=== PATIENT | female | born 1950 | race Caucasian/White ===

== ENCOUNTER 2017-08-12 15:39 | Emergency (ER) | payer OTHER ==
[~2017-08-12] VITALS: Ht 165.1 cm; Wt 79.4 kg
--- NOTE | 2017-08-12 16:08 | ED ANKLE/FOOT INJURY COMPLAINT ---
History of Present Illness General Chief Complaint: Foot or Ankle Injury Stated Complaint: L ANKLE INJURY X 30MIN Source: patient Exam Limitations: no limitations Vital Signs & Intake/Output Vital Signs & Intake/Output Vital Signs Date Time Temp Pulse Resp B/P B/P Pulse O2 O2 Flow FiO2 Mean Ox Delivery Rate 08/12 1544 97.1 73 18 177/92 97 Room Air Allergies Coded Allergies: Penicillins (Intermediate, RASH 06/13/15) Sulfa (Sulfonamide Antibiotics) (Intermediate, RASH 06/13/15) Triage Note: PT TO ER C/C TRIP AND FALL WHILE WALKING IN BACKYARD. +LEFT ANKLE PAIN AND SWELLING. ABLE TO BEAR WEIGHT. Triage Nurses Notes Reviewed? yes HPI: 66-year-old female presents to emergency department complaining of twisting her ankle. Incident occurred about 30 minutes prior to arrival. Patient was walking and stepped in a hole that was about 6 inches deep. She rolled her ankle laterally. She has not taken any for the pain. Denies any numbness or tingling. States she previously injured this ankle but that was over 30 years ago. (Anthnoy Aguilar PA-C) Past History Travel History Traveled to [place] past 21 day No Medical History Any Pertinent Medical History? none Cardiovascular: hypertension, hyperlipidemia Musculoskeletal: rheumatoid arthritis Tetanus Vaccine: 12/23/12 Surgical History Surgical History: none Psychosocial History What is your primary language Bengali Tobacco Use: Never used Family History Hx Contributory? No (Anthony Aguilar PA-C) Review of Systems Review of Systems Constitutional: Reports: no symptoms. EENTM: Reports: no symptoms. Respiratory: Reports: no symptoms. Cardiovascular: Reports: no symptoms. GI: Reports: no symptoms. Genitourinary: Reports: no symptoms. Musculoskeletal: Reports: see HPI. Skin: Reports: no symptoms. Neurological/Psychological: Reports: no symptoms. Hematologic/Endocrine: Reports: no symptoms. Immunologic/Allergic: Reports: no symptoms. All Other Systems: Reviewed and Negative (Anthony Aguilar PA-C) Physical Exam Physical Exam General Appearance: well developed/nourished, mild distress Head: atraumatic Eyes: Bilateral: PERRL, EOMI. Ears, Nose, Throat: normal pharynx, normal ENT inspection, hearing grossly normal Neck: normal inspection, supple Cardiovascular/Respiratory: regular rate/rhythm Leg/Knee/Thigh Left: normal range of motion Leg/Knee/Thigh Right: normal range of motion Ankle Left: Medial malleolus tenderness of left ankle. Mild swelling. No ecchymosis. Ankle Right: normal inspection Foot Left: Tender over tarsal bones, no tenderness over base of 5th mtp. Foot Right: normal inspection Neuro/Vascular: DP and PT pulses 2+, distal sensation intact. normal cap refill bilaterally. Tendon: Normal achilles. Skin: intact, normal color, warm/dry (Jeff ANGEL,Anthony) Progress Differential Diagnosis: fracture, dislocation, sprain, contusion, compartmental syndrome Plan of Care: Orders Procedure Date/time Status Durable Medical Equipment 08/12 1640 Active Diagnostic Imaging: Viewed by Me: Radiology Read. Discussed w/RAD: Radiology Read. Radiology Impression: PATIENT: AYAN BROWN PRESENT AGE: 66 PATIENT ACCOUNT NO: [id number] : 51 LOCATION: ER ORDERING PHYSICIAN: Anthony Aguilar PA-C SERVICE DATE: 08/12/17 EXAM TYPE: RAD - XRY -ANKLE 3 OR MORE VIEWS L EXAMINATION: XR ANKLE, LEFT CLINICAL INFORMATION: Twisting injury COMPARISON: None TECHNIQUE: AP, lateral, and mortise views of the left ankle. FINDINGS: There is soft tissue swelling around the malleoli especially medially The bones and soft tissues are normal. No fracture. Alignment is anatomic. Joint spaces are maintained. No joint effusion. There are vascular calcifications. IMPRESSION: Soft tissue swelling around medial malleolus, no fracture. DICTATED BY: Charlie White MD DATE/TIME DICTATED:1611 X RAY PHYSICIAN:PADMINI DATE/TIME TRANSCRIBED:08/12/171611 CONFIDENTIAL, DO NOT COPY WITHOUT APPROPRIATE AUTHORIZATION. <Electronically signed in Other Vendor System> SIGNED BY: Charlie White MD 08/12/171616 , PATIENT: AYAN BROWN PRESENT AGE: 66 PATIENT ACCOUNT NO: [id number] : 51 LOCATION: ER ORDERING PHYSICIAN: Anthony Aguilar PA-C SERVICE DATE: 08/12/17 EXAM TYPE: RAD - XRY-ANKLE 3 OR MORE VIEWS L EXAMINATION: XR ANKLE, LEFT CLINICAL INFORMATION: Twisting injury COMPARISON: None TECHNIQUE: AP, lateral, and mortise views of the left ankle. FINDINGS: There is soft tissue swelling around the malleoli especially medially The bones and soft tissues are normal. No fracture. Alignment is anatomic. Joint spaces are maintained. No joint effusion. There are vascular calcifications. IMPRESSION: Soft tissue swelling around medial malleolus, no fracture. DICTATED BY: Charlie White MD DATE/TIME DICTATED:08/12/171611 X RAY PHYSICIAN: PADMINI DATE/TIME TRANSCRIBED:08/12/171611 CONFIDENTIAL, DO NOT COPY WITHOUT APPROPRIATE AUTHORIZATION. <Electronically signed in Other Vendor System> SIGNED BY: Christopher BHATT,Roslynr 08/12/171616 Initial ED EKG: none Comments: Patient is a 66-year-old female who presented after twisting injury of her left ankle. She is mildly tender over medial malleolus. No fracture or dislocation seen on x-ray. She is neurovascular intact on exam. Exam is consistent with ankle sprain. Low concern for fracture dislocation. I do not suspect DVT in this patient. She is able to ambulate although it does cause some pain. Will give an Aircast as she does not want crutches or a cane. We will follow with primary care doctor in 1 week and return the emergency department immediately for any new or worsening symptoms. (Anthony Aguilar PA-C) Departure Departure Disposition: HOME OR SELF CARE Condition: Stable Clinical Impression Primary Impression: Left ankle sprain Referrals: Ping BHATT,Jean Dumont (PCP/Family) Additional Instructions: Your x-ray was negative for any fracture or dislocation. At home he could take Tylenol or NSAIDs for pain as needed. Rest, ice, compression, elevation. Avoid subsequent twisting injuries. Follow-up with your primary care doctor in 1 week if symptoms persist. Otherwise return to emergency department with any new or worsening symptoms. Departure Forms: Customer Survey General Discharge Information (Anthony Aguilar PA-C) PA/FACILITIES ASSISTANT Co-Sign Statement Statement: ED Attending supervision documentation- x I saw and evaluated the patient. I have also reviewed all the pertinent lab results and diagnostic results. I agree with the findings and the plan of care as documented in the PA's/FACILITIES ASSISTANT's documentation. [] I have reviewed the ED Record and agree with the PA's/FACILITIES ASSISTANT's documentation. [] Additions or exceptions (if any) to the PAs/FACILITIES ASSISTANT's note and plan are summarized below: [] (Neena BHATT,Hill)
--- NOTE | 2017-08-12 16:15 | RADIOLOGY REPORT ---
EXAMINATION:XRY-FOOT COMPLETE, LEFT VIEWS ACQUIRED: Frontal lateral and oblique CLINICAL INFORMATION: Twisting injury COMPARISON: None available at the time of this dictation. FINDINGS: There is no evidence of acute fracture or dislocation. Intertarsal, tarsometatarsal, metatarsophalangeal and interphalangeal joints are intact. Surrounding soft tissues is normal. , IMPRESSION: No fracture.
--- NOTE | 2017-08-12 16:17 | RADIOLOGY REPORT ---
EXAMINATION: XR ANKLE, LEFT CLINICAL INFORMATION: Twisting injury COMPARISON: None TECHNIQUE: AP, lateral, and mortise views of the left ankle. FINDINGS: There is soft tissue swelling around the malleoli especially medially The bones and soft tissues are normal. No fracture. Alignment is anatomic. Joint spaces are maintained. No joint effusion. There are vascular calcifications. IMPRESSION: Soft tissue swelling around medial malleolus, no fracture.
[2017-08-12 17:03] VITALS: BP 164/76
== END 2017-08-12 17:03 ==
LOC: ERH 15:39
DX: S93.402A Sprain of unspecified ligament of left ankle, initial encounter (principal); X50.9XXA Other and unspecified overexertion or strenuous movements or postures, initial encounter; Y93.01 Activity, walking, marching and hiking; Y92.9 Unspecified place or not applicable
CPT/HCPCS: 73610-LT; 73630-LT